=== PATIENT | female | born 1970 | race Caucasian/White ===

== ENCOUNTER 2022-10-19 17:00 | Outpatient (CLI) | payer OTHER, SELFPAY ==
--- NOTE | 2022-10-19 17:15 | CRLHL7_ITS ---
For Patients: As a result of the Century Cures Act, medical imaging exams and procedure reports are released immediately into your electronic medical record. You may view this report before your referring provider. If you have questions, please contact your health care provider. BILATERAL SCREENING MAMMOGRAM WITH COMPUTER-AIDED DETECTION AND TOMOSYNTHESIS TECHNIQUE: CC and MLO views were obtained. These mammographic images have been obtained using full-field digital technique. These mammographic images were interpreted with the benefit of computer-aided detection. Breast Tomosynthesis was used in this interpretation. COMPARISON FILM: 04/06/21, 03/19/20, 02/01/19. FINDINGS: The breasts are heterogeneously dense, which may obscure small masses IMPRESSION: There is no radiographic evidence for malignancy. ASSESSMENT: BI-RADS Category 1: Negative RECOMMENDATION: Routine screening mammogram in 1 year. A lay language report of this examination will be provided to the patient. Kwesi Martínez M.D. Diagnostic Radiologist [email or web address] Transcribed: 2:56 p.nadine dudley/Dictated by: Kwesi Martínez MD @ 10/20/2022 11:51:00 AM (Electronically Signed)
== END 2022-10-19 17:01 | disposition home or self-care (01) ==
PROVIDERS: PCP Physician Assistant Medical; Visit Provider Physician Assistant Medical
DX: Z12.31 Encounter for screening mammogram for malignant neoplasm of breast (principal); R92.2 Inconclusive mammogram
CPT/HCPCS: 77063; 77067

== ENCOUNTER 2023-09-21 16:00 | Outpatient (RCR) | payer OTHER, SELFPAY | END 2024-01-19 23:59 | disposition home or self-care (01) | PROVIDERS: PCP Physician Assistant Medical; Visit Provider Orthopaedic Surgery Sports Medicine | DX: M75.02 Adhesive capsulitis of left shoulder (principal); M25.512 Pain in left shoulder; M25.612 Stiffness of left shoulder, not elsewhere classified; Z51.89 Encounter for other specified aftercare | CPT/HCPCS: 97110; 97140; 97161 ==

== ENCOUNTER 2024-01-10 17:24 | Outpatient (CLI) | payer OTHER, SELFPAY ==
--- NOTE | 2024-01-10 17:40 | CRLHL7_ITS ---
For Patients: As a result of the Century Cures Act, medical imaging exams and procedure reports are released immediately into your electronic medical record. You may view this report before your referring provider. If you have questions, please contact your health care provider. BILATERAL SCREENING MAMMOGRAM WITH COMPUTER-AIDED DETECTION AND TOMOSYNTHESIS TECHNIQUE: CC and MLO views were obtained. These mammographic images have been obtained using full-field digital technique. These mammographic images were interpreted with the benefit of computer-aided detection. Breast Tomosynthesis was used in this interpretation. COMPARISON FILM: 10/19/22, 04/13/21, 04/06/21. FINDINGS: The breasts are heterogeneously dense, which may obscure small masses IMPRESSION: There is no radiographic evidence for malignancy. ASSESSMENT: BI-RADS Category 1: Negative RECOMMENDATION: Routine screening mammogram in 1 year. A lay language report of this examination will be provided to the patient. Kwesi Martínez M.D. Diagnostic Radiologist [email or web address] Transcribed: 1:46 p.nadine dudley/Dictated by: Kwesi Martínez MD @ 01/12/2024 11:27:00 AM (Electronically Signed)
== END 2024-01-10 17:25 | disposition home or self-care (01) ==
LOC: MAMMO 17:24
PROVIDERS: PCP Physician Assistant Medical; Visit Provider Physician Assistant Medical
DX: Z12.31 Encounter for screening mammogram for malignant neoplasm of breast (principal); R92.333 Mammographic heterogeneous density, bilateral breasts
CPT/HCPCS: 77063; 77067

== ENCOUNTER 2024-10-11 15:45 | Outpatient (CLI) | payer OTHER, SELFPAY ==
[2024-10-13 07:27] LABS: HPV Source Cervix
[2024-10-17 08:42] LABS: Pap Test Digital Imaging Done
== END 2024-10-11 15:46 | disposition home or self-care (01) ==
PROVIDERS: PCP Physician Assistant Medical; Visit Provider Registered Nurse
DX: Z12.4 Encounter for screening for malignant neoplasm of cervix (principal); Z11.51 Encounter for screening for human papillomavirus (HPV)
CPT/HCPCS: 87624; 87625; 88141; 88142; 88175

== ENCOUNTER 2024-10-18 08:15 | Outpatient (CLI) | payer OTHER, SELFPAY | END 2024-10-18 08:16 | disposition home or self-care (01) | LOC: NFLDREF 10-20 23:09 | PROVIDERS: PCP Physician Assistant Medical; Referring Provider Physician Assistant Medical; Visit Provider Registered Nurse | DX: Z13.6 Encounter for screening for cardiovascular disorders (principal); Z13.1 Encounter for screening for diabetes mellitus; Z13.29 Encounter for screening for other suspected endocrine disorder | CPT/HCPCS: 80061; 82947; 84443 ==

== ENCOUNTER 2024-10-23 16:29 | Outpatient (CLI) | payer OTHER, SELFPAY ==
--- NOTE | 2024-10-23 16:45 | CRLHL7_ITS ---
For Patients: As a result of the Century Cures Act, medical imaging exams and procedure reports are released immediately into your electronic medical record. You may view this report before your referring provider. If you have questions, please contact your health care provider. Indication: Follow up nodule Technique: Noncontrast CT chest Please note that all CT scans at this facility use dose modulation, iterative reconstruction, and/or weight-based dosing when appropriate to reduce radiation dose to as low as reasonably achievable. Comparison: 06/03/2020 Findings: Visualized thyroid is within normal limits. Calcified subcarinal and right hilar lymph nodes. No pleural or pericardial effusion. Vascular calcifications. Calcified splenic granulomas. No fracture. Mild degenerative disc disease. Mild biapical pleural-parenchymal scarring. Calcified nodular cluster in the right lower lobe is unchanged. Impression: No change compared to the prior study. Please note that all CT scans at this facility use dose modulation, iterative reconstruction, and/or weight-based dosing when appropriate to reduce radiation dose to as low as reasonably achievable. Dictated by Kwesi Martínez MD @ 10/24/2024 11:43:37 AM (Electronically Signed)
== END 2024-10-23 16:30 | disposition home or self-care (01) ==
LOC: CT 16:30
PROVIDERS: PCP Physician Assistant Medical; Visit Provider Registered Nurse
DX: R91.1 Solitary pulmonary nodule (principal); F17.200 Nicotine dependence, unspecified, uncomplicated
CPT/HCPCS: 71250

== ENCOUNTER 2025-01-14 12:37 | Outpatient (CLI) | payer OTHER, SELFPAY ==
--- NOTE | 2025-02-06 13:11 | W.PM.SLEEP ---
Sleep Study Details Details Interpreting Provider: Pan Date of Sleep Study: 01/14/25 Sleep Study Details: STUDY TYPE:? Home unattended ? BMI:? 25.06 ORDERING PROVIDER:Aime Perla INDICATION:? Concern for sleep apnea ? SLEEP SUMMARY:? Monitor time 358 minutes RESPIRATORY SUMMARY:? AHI 8.2 per rule 1A, 7.0 per CMS guideline Low oxygen 80 6.8% of study oxygen less than 90% Snoring 98.2% PERIODIC LIMB MOVEMENTS OF SLEEP:? Not recorded CARDIAC:? Range 54-94, mean 72 beats per minute IMPRESSION:? Mild obstructive sleep apnea with significant hypo oxygenation noted for 6.8% of the study RECOMMENDATION: Treatment options include CPAP dental appliance and/or airway expansion surgery.
== END 2025-01-14 12:38 | disposition home or self-care (01) ==
LOC: SLEEP 12:38
PROVIDERS: PCP Physician Assistant Medical; Visit Provider Otolaryngology
DX: G47.33 Obstructive sleep apnea (adult) (pediatric) (principal)
CPT/HCPCS: 95806

== ENCOUNTER 2025-01-15 16:52 | Outpatient (CLI) | payer OTHER, SELFPAY ==
--- NOTE | 2025-01-15 17:00 | CRLHL7_ITS ---
For Patients: As a result of the Century Cures Act, medical imaging exams and procedure reports are released immediately into your electronic medical record. You may view this report before your referring provider. If you have questions, please contact your health care provider. INDICATION: BILATERAL SCREENING MAMMOGRAM, ASYMPTOMATIC 54 Y/O FEMALE COMPARISON: 01/10/24, 10/19/22, 04/06/21 TECHNIQUE: Digital mammogram in CC and MLO projections including computer-aided detection (CAD) and tomosynthesis. BREAST COMPOSITION: The breasts are heterogeneously dense, which may obscure small masses. FINDINGS: No suspicious findings. ASSESSMENT: BI-RADS 1 Negative RECOMMENDATION: Annual screening mammogram. A lay language report of this examination will be provided to the patient. Dictated by: Lynn Milton MD @ 01/16/2025 20:55:55 (Electronically Signed)
== END 2025-01-15 16:53 | disposition home or self-care (01) ==
LOC: MAMMO 16:53
PROVIDERS: PCP Physician Assistant Medical; Visit Provider Physician Assistant Medical
DX: Z12.31 Encounter for screening mammogram for malignant neoplasm of breast (principal); R92.333 Mammographic heterogeneous density, bilateral breasts
CPT/HCPCS: 77063; 77067